=== PATIENT | male | born 1990 | race Caucasian/White ===

== ENCOUNTER 2018-11-11 10:03 | Emergency (ER) | payer OTHER ==
[~2018-11-11] VITALS: Ht 203.2 cm; Wt 176.9 kg
[2018-11-11 10:03] VITALS: BP 169/86
--- NOTE | 2018-11-11 10:43 | RAD ---
EXAM: AP, oblique and lateral views of both knees DATE: 11/11/2018 10:31 AM INDICATION: right ankle pain x 1 day, twisted ankle, pt shielded COMPARISON: No Prior FINDINGS: No evidence of acute fracture or dislocation. Talar dome is intact. Ankle mortise is congruent. Calcaneal enthesopathy. Joint spaces are preserved without significant degenerative/proliferative change. Mild soft tissue swelling overlying the medial malleolus. IMPRESSION: Soft tissue swelling overlying the medial malleolus without definite evidence for fracture or dislocation. Electronically signed by: Filipe Pedro MD (11/11/2018 10:39 AM) [facility]
[2018-11-11] MEDS ORDERED: IBUP800T19 PO (10:47)
--- NOTE | 2018-11-11 10:47 | PHYS DOC ---
Past History Past Medical History: GERD, Hypertension Past Surgical History: No Surgical History Alcohol Use: Occasionally Drug Use: None Adult General Chief Complaint Chief Complaint: ANKLE PROBLEM HPI HPI Patient is a 28 year old male who presents with complaining of right ankle pain and injury. Patient states he slipped on mud around midnight or 1 AM this morning while he was at the work and twisted his right ankle without other injuries and loss of consciousness. Patient complaining of pain in medial malleolus that getting worse with walking and bearing weight. Patient denies focal neurodeficit. Review of Systems Review of Systems Constitutional: Denies fever or chills [] Eyes: Denies change in visual acuity, redness, or eye pain [] HENT: Denies nasal congestion or sore throat [] Respiratory: Denies cough or shortness of breath [] Cardiovascular: No additional information not addressed in HPI [] GI: Denies abdominal pain, nausea, vomiting, bloody stools or diarrhea [] : Denies dysuria or hematuria [] Musculoskeletal: Denies back pain, reports joint pain [] Integument: Denies rash or skin lesions [] Neurologic: Denies headache, focal weakness or sensory changes [] Endocrine: Denies polyuria or polydipsia [] All other systems were reviewed and found to be within normal limits, except as documented in this note. Allergies Allergies Allergies Coded Allergies Type Severity Reaction Last Updated Verified No Known Drug Allergies 11/11/18 No Physical Exam Physical Exam Constitutional: Well developed, well nourished,mild distress, non-toxic appearance, morbidly obese. [] HENT: Normocephalic, atraumatic Eyes: PERRLA, EOMI, conjunctiva normal, no discharge. [] Neck: Normal range of motion, no tenderness, supple, no stridor. [] Cardiovascular:Heart rate regular rhythm, no murmur [] Lungs & Thorax: Bilateral breath sounds clear to auscultation [] Skin: Warm, dry, no erythema, no rash. [] Back: No tenderness, no CVA tenderness. [] Extremities: Right ankle without deformity or erythema or edema, mild tenderness in the medial malleolus without limited range of motion, no cyanosis , no clubbing, ROM intact, no edema. [] Neurologic: Alert and oriented X 3, normal motor function, normal sensory function, no focal deficits noted. [] Psychologic: Affect normal, judgement normal, mood normal. [] Current Patient Data Vital Signs Vital Signs Date Time Temp Pulse Resp B/P (MAP) Pulse Ox O2 Delivery O2 Flow Rate FiO2 11/11/18 10:03 98.6 87 20 99 Room Air EKG EKG [] Radiology/Procedures Radiology/Procedures [address] [id number] IMAGING REPORT Signed PATIENT: DYANA WHITEHEAD ACCOUNT: [id number] : 1990 LOCATION: ER AGE: 28 SEX: M EXAM STATUS: REG ER ORD. PHYSICIAN: MARIAN NIEVES MD REASON: injury PROCEDURE: ANKLE RIGHT 3V EXAM: AP, oblique and lateral views of both knees DATE: 11/11/2018 10:31 AM INDICATION: right ankle pain x 1 day, twisted ankle, pt shielded COMPARISON: No Prior FINDINGS: No evidence of acute fracture or dislocation. Talar dome is intact. Ankle mortise is congruent. Calcaneal enthesopathy. Joint spaces are preserved without significant degenerative/proliferative change. Mild soft tissue swelling overlying the medial malleolus. IMPRESSION: Soft tissue swelling overlying the medial malleolus without definite evidence for fracture or dislocation. Electronically signed by: Filipe Pedro MD (11/11/2018 10:39 AM) [facility] DICTATED AND SIGNED BY: FILIPE PEDRO MD DATE: 11/11/18 1037 CC: MARIAN NIEVES MD; PCP,NO ~ Course & Med Decision Making Course & Med Decision Making Pertinent Imaging studies reviewed. (See chart for details) Evaluation of patient in ER showed 28-year-old male patient with injury to right ankle without abnormal x-ray or physical exam. He was advised to apply ice on the affected area and follow up with his primary care physician. Patient had blood pressure of 169/86 at arrival to ER and states she has history of hypertension but his primary care physician start his medication. Patient was advised to record his blood pressure and follow up with his primary care physician. Dragon Disclaimer Dragon Disclaimer This electronic medical record was generated, in whole or in part, using a voice recognition dictation system. Departure Departure: Impression: Primary Impression: Right ankle sprain Additional Impressions: Elevated blood pressure reading with diagnosis of hypertension Morbid obesity Disposition: HOME, SELF-CARE (at 1044) Condition: STABLE Referrals: [facility]CP[facility]ER[facility] (PCP) Patient Instructions: Ankle Sprain Additional Instructions: Apply ice on the affected area Follow-up with your primary care physician in 3-5 days Return to ER if not getting better Scripts Ibuprofen (IBUPROFEN) 800 Mg Tablet 1 TAB PO TID for pain, #30 TAB Prov: MARIAN NIEVES MD 11/11/18 Problem Qualifiers MARIAN NIEVES MD Nov 11, 2018 10:47
== END 2018-11-11 10:51 | disposition home or self-care (01) ==
LOC: ER 10:03
DX: S93.491A Sprain of other ligament of right ankle, initial encounter (principal); I10 Essential (primary) hypertension; K21.9 Gastro-esophageal reflux disease without esophagitis; E66.01 Morbid (severe) obesity due to excess calories; Z68.41 Body mass index [BMI] 40.0-44.9, adult; X50.1XXA Overexertion from prolonged static or awkward postures, initial encounter; Y93.89 Activity, other specified; Y92.89 Other specified places as the place of occurrence of the external cause; Y99.0 Civilian activity done for income or pay
CPT/HCPCS: 29515; 73610; 99283